=== PATIENT | female | born 1930 | race Caucasian/White ===

== ENCOUNTER 2018-06-10 10:02 | Observation (INO) ==
[2018-06-10] MEDS ORDERED: Aspirin 81 MG TAB.CHEW PO ONE (10:19)
[2018-06-10] MEDS ORDERED: Bumetanide 1 MG/4 ML VIAL IVP ONE (10:19)
--- NOTE | 2018-06-10 10:21 | Emergency Department Note ---
Disposition Clinical Impression: Congestive heart failure Disposition: Admitted As Inpatient Condition: Good Referrals: NONE,PCP [Primary Care Provider] - Time of Disposition: 11:47 SOB HPI - General Chief Complaint: ED Shortness of Breath/Dyspnea Stated Complaint: sob Time Seen by Provider: 06/10/18 10:06 Source: patient Mode of arrival: ambulatory Limitations: no limitations Nursing Notes Reviewed: Yes Vital Signs Reviewed: Yes - History of Present Illness Pt Subjective Complaint: shortness of breath, chest pain (No pain pressure) Onset (ago): day(s) Severity: mild Consistency/Duration: intermittent, gradually worsening Improves with: nothing Worsens with: exertion, movement Associated symptoms: Reports: chest pain, orthopnea. Denies: pain with inspiration, fever, cough, wheezing (Pressure), sputum production, lower extremity pain, polyuria, polydipsia, parasthesias, palpitations, hemoptysis, diaphoresis, nausea/vomiting, syncope, abdominal pain, rash, sense of impending doom Treatment prior to arrival: none, other ([place] family physician on Monday they didn't no medication changes at that time) Cough present: No Sputum production: No - Related Data Home Medications Medication Instructions Recorded Confirmed Metoprolol [Lopressor] 25 mg PO BID 06/10/18 06/10/18 Nitrofurantoin (BID) [Macrobid] 100 mg PO BID 06/10/18 06/10/18 Allergies Allergy/AdvReac Type Severity Reaction Status Date / Time No Known Allergies Allergy Verified 09/05/15 08:40 All systems ED: reviewed and negative except as stated. Limitations: ROS unobtainable due to patients medical condition Constitutional: Denies: fever, chills, weakness Eyes: Denies: eye pain, eye discharge ENT ED: Denies: throat pain, congestion Cardiovascular: Reports: chest pain (Pressure not pain), orthopnea, edema. Denies: palpitations, dyspnea on exertion, paroxysmal nocturnal dyspnea Respiratory: Reports: cough. Denies: dyspnea, wheezes, hemoptysis Gastrointestinal: Denies: abdominal pain, nausea, vomiting Genitourinary: Denies: urgency, dysuria, frequency Musculoskeletal: Denies: back pain, neck pain Integumentary: Denies: rash, abrasion Neurological: Denies: headache, weakness Psychiatric: Denies: anxiety Endocrine: Denies: fatigue, heat or cold intolerance Hematological/Lymphatic: Denies: easy bleeding, easy bruising Allergic/Immunologic: Denies: facial swelling, urticaria Past Medical History - Past Medical History Attestation: Yes The following information was validated with the patient. Source: patient, old records reviewed, nursing notes reviewed Medical history: Reports: hyperlipidemia, hypertension, other Psychiatric history: Reports: no psych history - Social History Smoking Status: Former smoker Smokeless Tobacco Status: No Alcohol use: Reports: none Drug use: Reports: none Physical Exam - General Limitations: no limitations General appearance: alert, in no apparent distress, other (Pleasant younger than stated age) - Head Head exam: atraumatic, normocephalic, normal inspection - Eye Eye exam: Present: normal appearance, PERRL, EOMI - ENT ENT exam: normal exam, normal oropharynx - Neck Neck exam: Present: normal inspection, full ROM, trachea midline - Chest Chest inspection: Present: normal inspection, symmetric chest wall rise - Respiratory Respiratory exam: Present: other (Crackles in the bases) - Cardiovascular Cardiovascular exam: Present: regular rate, normal rhythm, normal heart sounds - Abdominal Exam Abdominal exam: Present: soft, Non-Tender, normal bowel sounds. Absent: mass, pulsatile mass - Expanded Upper Extremity Exam Shoulder exam: Present: normal inspection, full ROM Arm exam: Present: normal inspection, full ROM Elbow exam: Present: normal inspection, full ROM Forearm/Wrist exam: Present: normal inspection, full ROM Hand exam: Present: normal inspection, full ROM Vascular exam: Normal: capillary refill, radial pulse - Expanded Lower Extremity Exam Hip/Pelvis exam: Present: normal inspection, full ROM Upper leg exam: Present: normal inspection, full ROM Knee exam: Present: normal inspection, full ROM Lower leg exam: Present: normal inspection, full ROM, swelling Ankle exam: Present: normal inspection, full ROM, swelling Foot/toe exam: Present: normal inspection, full ROM, swelling Neurovascular/Tendon exam: Present: normal capillary refill, normal fine/light touch. Absent: motor deficit, sensory deficit, tendon deficit Gait: observed and normal - Back Exam Back exam: Present: normal inspection, full ROM. Absent: muscle spasm - Neurological Exam Neurological exam: Present: alert, oriented X3, CN II-XII intact, normal gait - Psychiatric Psychiatric exam: Present: normal affect, normal mood - Skin Skin exam: Present: warm, dry, intact, normal color Course Course Narrative: Patient was immediately seen and evaluated patient's noted to have some edema lower extremities as result the patient given 1 mg of Bumex and patient's R he started diuresing well here patient's that she starting to feel markedly improved patient will be transferred to [facility] patient improved feeling better blood pressures Vital Signs Temperature 97.5 F L 06/10/18 10:06 Pulse Rate 98 06/10/18 10:06 Respiratory Rate 18 06/10/18 10:06 Blood Pressure 182/94 06/10/18 10:06 O2 Sat by Pulse Oximetry 97 06/10/18 10:06 Temperature 97.5 F L 06/10/18 10:06 Pulse Rate 98 06/10/18 10:06 Respiratory Rate 18 06/10/18 10:06 Blood Pressure 182/94 06/10/18 10:06 O2 Sat by Pulse Oximetry 97 06/10/18 10:06 Oxygen Delivery Oxygen Delivery Room Air Shortness of Breath/Dyspnea - Differential Diagnosis Likely: congestive heart failure - Medical Records Medical records reviewed: Yes I reviewed the patient's medical records. - Lab Data Lab results reviewed: Yes I reviewed the patient's lab results. - Radiology Data Radiology results reviewed: Yes I reviewed the patient's radiology results. ITS Impressions Chest X-Ray 06/10/18 10:19 IMPRESSION: 1. Mild pulmonary edema with bibasilar atelectasis and small effusions. D/ / 06/10/2018 10:44:25 Kyara Boss MD / alana Interpreting Provider: Kyara Boss MD - EKG Data EKG attestation: Yes I reviewed and interpreted this EKG. EKG results narrative: Sinus rhythm ABC unifocal lateral T-wave depression noted in V5 and V6 no ST segment elevation Critical Care Time Critical Care Time: No
[2018-06-10 10:46] LABS: Basophils # 0.1 K/mcL (0.0-0.2); Basophils % 0.5 %; Eosinophils % 0.3 %; Hematocrit 33.8 % (35.3-44.9); Hemoglobin 10.6 g/dL (11.5-15.4); Immature Granulocytes % 0.5 % (0-4); Lymphocytes % 20.7 %; Mean Corpuscular HGB Conc 31.4 g/dL (31.6-35.5); Mean Corpuscular Hemoglobin 28.1 pg (28.0-33.3); Mean Corpuscular Volume 89.7 fL (83.0-100.0); Mean Platelet Volume 10.3 fL (9.4-12.4); Monocytes # 0.9 K/mcL (0.0-1.3); Monocytes % 9.7 %; Neutrophils # 6.5 K/mcL (1.6-8.9); Platelet Count 271 K/mcL (140-400); Red Blood Count 3.77 M/mcL (3.82-4.97); Red Cell Distribution Width 13.2 % (11.5-14.5); Segmented Neutrophils % 68.3 %
[2018-06-10 10:54] LABS: INR 1.1; Prothrombin Time 12.7 Seconds (9.4-12.1)
[2018-06-10 10:56] LABS: Activated Partial Thrombo Time 29.5 Seconds (26.0-36.0)
[2018-06-10 11:01] LABS: Albumin/Globulin Ratio 1.2 (1.1-2.2); Bilirubin,Total 0.7 mg/dL (0.3-1.0); Calcium 9.1 mg/dL (8.6-10.3); Globulin 3.4 g/dL (2.4-3.5); Potassium 3.6 mEq/L (3.5-5.1); Total Protein 7.4 g/dL (6.4-8.9)
[2018-06-10 11:16] LABS: Troponin I 0.05 ng/mL (< 0.04)
[2018-06-10 11:20] LABS: Bilirubin,Urine Negative (Negative); Blood,Urine Moderate (Negative); Clarity,Urine Slightly Cloudy (Clear); Color,Urine Orange (Yellow); Glucose,Urine (UA) Normal (Normal); Ketones,Urine Negative (Negative); Leukocyte Esterase,Urine Small (Negative); Nitrite,Urine Positive (Negative); PH,Urine 5.5 pH Units (5.0-8.0); Protein,Urine 100 mg/dL (Neg-Trace); Urobilinogen,Urine Normal (Normal)
[2018-06-10 11:28] LABS: Bacteria,Urine Moderate per hpf (None-Few); Granular Casts,Urine Few per lpf (None Seen); Hyaline Casts,Urine Few per lpf (None-Few); Mucus,Urine Few (Few); Squamous Epithelial Cell,Urine Moderate per lpf (None-Few); WBC,Urine TNTC per hpf (0-3)
[2018-06-10] MEDS ORDERED: Naloxone 0.4 MG/ML INJ IVP PRN (12:08)
[2018-06-10] MEDS ORDERED: cefTRIAXone 1,000 MG in Water for inj. (sterile) 20 ML 10 ML IVP ONE ×2 (12:40→13:00)
[2018-06-10] MEDS: Bumetanide 1 MG/4 ML VIAL IVP SCH (16:16)
--- NOTE | 2018-06-10 17:50 | Internal Med History&Physical ---
Date of Encounter: 06/10/18 Time of Encounter: 17:15 Assessment and Plan (1) Congestive heart failure Current visit: Yes Status: Acute She was given IV Bumex in emergency room. Symptoms have lessened. Continue IV diuretics and Lopressor. Echocardiogram will be done and further workup as needed. Qualifiers: Heart failure type: unspecified Heart failure chronicity: unspecified Qu alified Code(s): I50.9 - Heart failure, unspecified (2) Anemia Current visit: Yes Status: Acute Anemia testing will be done in a.m. Qualifiers: Anemia type: unspecified type Qualified Code(s): D64.9 - Anemia, unspecified (3) Hypertension Current visit: Yes Status: Chronic Continue metoprolol and IV diuretics. Blood pressure will be monitored. Qualifiers: Hypertension type: essential hypertension Qualified Code(s): I10 - Essenti al (primary) hypertension (4) CKD (chronic kidney disease) stage 3, GFR 30-59 ml/min Current visit: Yes Status: Chronic Creatinine has increased from 1.02 on 08/12/2016 to 1.27 today. IV fluids will be given and renal indices will be monitored. (5) Elevated troponin Current visit: Yes Status: Acute Suspect due to demand ischemia from heart failure. Continue to trend. (6) Low vitamin D level Current visit: Yes Status: Acute Vitamin D level was 23 on 08/12/2016. Recheck in a.m. (7) UTI (urinary tract infection) Current visit: Yes Status: Acute Escherichia coli was found on urine culture 05/25/2018. Rocephin was given in emergency room and will be continued with lactobacillus. Qualifiers: Urinary tract infection type: site unspecified Hematuria presence: with hematuria Qualified Code(s): N39.0 - Urinary tract infection, site not specified; R31.9 - Hematuria, unspecified Internal Medicine - H&P: HPI Chief complaint: Dyspnea, vomiting Admitted From: Emergency Dept Plans for Post Hospital Care: Home History of present illness: Ms. Cordero is a 87 year old female who came to emergency room stating she had worsening dyspnea over the previous 2 weeks. She was evaluated at her PCP office June 04 and was told she had asthma and UTI. She was started on Bactrim DS but was changed to nitrofurantoin the following day for unknown reason. PFTs were ordered to be done June 12. She did not feel improved with the treatment so came to emergency room today. Workup showed significantly elevated BN peptide, azotemia, anemia and evidence of UTI. She was [facility] to [facility] floor for ongoing care needs. Her cardiovascular history is significant for hypertension. She denies diagnosis of [place] heart failure angina DVT or pulmonary embolus. She admits she has had some dyspnea on exertion for approximately 6 months. Respiratory history is significant for having smoked from approximately age 23- 53 never up to one pack per day. She denies chronic lung disease and does not use home oxygen. She has not had PFTs previously. Past Med Surg Social Fam HX - Past Medical History Medical history: hyperlipidemia, hypertension, other Additional medical history: Macular degeneration Psychiatric history: no psych history - Past Surgical History Surgical History: no surgical history - Social History Smoking Status: Former smoker Smokeless Tobacco Status: No Alcohol use: none Drug use: none Internal Medicine - H&P: Meds Metoprolol [Lopressor] 25 mg PO BID 06/10/18 [History] Nitrofurantoin (BID) [Macrobid] 100 mg PO BID 06/10/18 [History] Allergy/AdvReac Type Severity Reaction Status Date / Time No Known Allergies Allergy Verified 09/05/15 08:40 All Systems PM: A 10-system review of systems was performed and is negative for pertinent findings except as documented above in the HPI. Review of systems: Gen.: She states she has lost approximately 10 pounds in the past 2 years Cardiovascular: As per history of present illness Respiratory: As per history of present illness GI: She denies disorders of her liver gallbladder or exocrine pancreas : She was told she had decreased GFR August 2016. 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 She denies known kidney or bladder disorders otherwise. Neurologic: She denies large distribution strokes or seizures. Endocrine: She has history of hyperlipidemia but no longer takes medication. She denies diabetes or thyroid disease. Hematology/oncology: She has been diagnosed with anemia in the past and was instructed to take OTC iron pills. She denies internal malignancies or other bl ood disorders. Psychiatric: She denies anxiety depression or other mental health issues. [place] skeletal: She has DJD but denies gout or other bone joint or muscle disorders. - Constitutional Vitals: Temp Pulse Resp BP Pulse Ox 98.1 F 88 16 161/87 98 06/10/18 16:37 06/10/18 16:37 06/10/18 16:37 06/10/18 16:37 06/10/18 16:37 Exam: Gen.: She is a well developed well-nourished female resting comfortably in bed who appears in no acute distress HEENT: Head is atraumatic and normocephalic. Eyes: EOMI. There is no scleral icterus. Mouth: Mucosa is moist. Neck: Supple and nontender. There is no thyromegaly or adenopathy noted. Heart: Regular without murmurs or gallops. She has frequent ectopic beats. Lungs: No wheezes or crackles are heard. Abdomen: Soft and nontender. No masses or guarding are noted. Extremities: There is no cyanosis or clubbing noted. She has 1+ edema of the dorsum of the feet bilaterally. Dorsalis pedis and posterior tibial pulses are trace palpable. Neurologic: Mental status: She is talkative and a good historian. Cranial nerves: Smile is symmetric. Forehead wrinkles bilaterally. Tongue protrudes midline. EOMI. Motor: There is no pronator drift. Cerebellar: Finger to nose is intact bilaterally. Skin: Warm and dry Internal Med - H&P Results - Labs CBC & Chem 7: 06/10/18 10:38 06/10/18 10:38 Labs: Short CBC 06/10/18 Range/Units 10:38 WBC 9.6 (4.3-11.1) K/mcL Hgb 10.6 L (11.5-15.4) g/dL Hct 33.8 L (35.3-44.9) % Plt Count 271 (140-400) K/mcL Neutrophils # 6.5 (1.6-8.9) K/mcL BMP 06/10/18 10:38 Sodium 138 Potassium 3.6 Chloride 103 Carbon Dioxide 23 BUN 29 H Creatinine 1.27 H Glucose 131 H Calcium 9.1 Cardiac Enzymes 06/10/18 06/10/18 Range/Units 10:38 16:12 Troponin I 0.05 H* 0.06 H* (< 0.04) ng/mL Liver Function 06/10/18 Range/Units 10:38 Total Bilirubin 0.7 (0.3-1.0) mg/dL AST 12 L (13-39) Units/L ALT 13 (7-52) Units/L Alkaline Phosphatase 62 (34-104) Units/L Albumin 4.0 (3.5-5.7) g/dL Urine 06/10/18 Range/Units 11:10 Urine Color Izard A (Yellow) Urine Clarity Slightly Cloudy A (Clear) Urine pH 5.5 (5.0-8.0) pH Units Ur Specific Hawley 1.020 (1.010-1.025) Urine Protein 100 H (Neg-Trace) mg/dL Urine Glucose (UA) Normal (Normal) mg/dL - Impressions ITS Impressions Chest X-Ray 06/10/18 10:19 IMPRESSION: 1. Mild pulmonary edema with bibasilar atelectasis and small effusions. D/ / 06/10/2018 10:44:25 Kyara Boss MD / alana Interpreting Provider: Kyara Boss MD
[2018-06-10] MEDS: Isosorbide MONOnitrate (24 HR) 30 MG TAB.ER.24H PO SCH (18:17)
[2018-06-10] MEDS ORDERED: 0.45 % Sodium Chloride w/KCl 20 MEQ/1,000 ML MLS IVC SCH (18:45)
[2018-06-10] MEDS: Lactobacillus 1 EACH CAP.SPRINK PO SCH (21:00)
[2018-06-11 06:19] LABS: Basophils % 0.4 %; Eosinophils # 0.1 K/mcL (0.0-0.6); Eosinophils % 1.3 %; Hematocrit 29.4 % (35.3-44.9); Hemoglobin 9.3 g/dL (11.5-15.4); Immature Granulocytes % 0.2 % (0-4); Lymphocytes # 2.6 K/mcL (0.6-4.6); Lymphocytes % 27.8 %; Mean Corpuscular HGB Conc 31.6 g/dL (31.6-35.5); Mean Corpuscular Hemoglobin 28.4 pg (28.0-33.3); Mean Corpuscular Volume 89.6 fL (83.0-100.0); Mean Platelet Volume 10.9 fL (9.4-12.4); Monocytes # 1.1 K/mcL (0.0-1.3); Monocytes % 12.3 %; Neutrophils # 5.3 K/mcL (1.6-8.9); Platelet Count 229 K/mcL (140-400); Red Blood Count 3.28 M/mcL (3.82-4.97)
[2018-06-11 06:37] LABS: Calcium 8.5 mg/dL (8.6-10.3); Magnesium 1.9 mg/dL (1.6-2.6); Potassium 3.8 mEq/L (3.5-5.1)
[2018-06-11] MEDS: Bumetanide 1 MG/4 ML VIAL IVP SCH ×2 (09:01→17:49)
[2018-06-11] MEDS: Lactobacillus 1 EACH CAP.SPRINK PO SCH ×2 (09:01→21:14)
[2018-06-11] MEDS: cefTRIAXone 1,000 MG in Water for inj. (sterile) 20 ML 10 ML IVP SCH (09:09)
[2018-06-11 10:43] LABS: Folate 21.1 ng/mL (3.0-16.0)
--- NOTE | 2018-06-11 11:50 | Internal Med Progress Note ---
Date of Encounter: 06/11/18 Time of Encounter: 11:25 - Assessment and plan (1) Congestive heart failure Current Visit: Yes Status: Acute Assessment and plan: June 11. LVEF was 30-35%. Metoprolol dose will be increased. Lisinopril will be started. Imdur will be continued with IV Bumex. Follow-up labs will be done in a.m. Qualifiers: Heart failure type: unspecified Heart failure chronicity: unspecified Qualified Code(s): I50.9 - Heart failure, unspecified (2) Anemia Current Visit: Yes Status: Acute Assessment and plan: Anemia testing showed iron 24, transferrin saturation 5%, transferrin 323, ferritin 18, B12 258, and folate 21.1. She will be given ferrous sulfate with ascorbic acid. Qualifiers: Anemia type: unspecified type Qualified Code(s): D64.9 - Anemia, unspecified (3) Hypertension Current Visit: Yes Status: Chronic Assessment and plan: June 11. Increase metoprolol and add lisinopril. Qualifiers: Hypertension type: essential hypertension Qualified Code(s): I10 - Essential (primary) hypertension (4) CKD (chronic kidney disease) stage 3, GFR 30-59 ml/min Current Visit: Yes Status: Chronic Assessment and plan: June 11. Creatinine minimally changed at 1.21. Discontinue IV fluids and monitor renal indices. (5) Elevated troponin Current Visit: Yes Status: Acute Assessment and plan: June 11. Likely due to heart failure with demand ischemia. (6) Low vitamin D level Current Visit: Yes Status: Acute Assessment and plan: June 11. Vitamin D level returned low at 17. Start vitamin D 2000 international units daily. (7) UTI (urinary tract infection) Current Visit: Yes Status: Acute Assessment and plan: June 11. Urine culture pending. Continue empiric Rocephin with lactobacillus. Qualifiers: Urinary tract infection type: site unspecified Hematuria presence: with hematuria Qualified Code(s): N39.0 - Urinary tract infection, site not specified; R31.9 - Hematuria, unspecified - Subjective Interval history: June 11. She has no new complaints. - Constitutional Vitals: Temp Pulse Resp BP Pulse Ox 98.3 F 72 16 148/78 96 06/11/18 11:25 06/11/18 11:25 06/11/18 11:25 06/11/18 11:25 06/11/18 11:25 Exam: She is resting comfortably in bed and appears in no acute distress. Her affect is overall cheerful. I reviewed her medications and lab results. I discussed in detail the report of her echocardiogram. Internal Medicine: Result - Labs CBC & Chem 7: 06/11/18 05:33 06/11/18 05:33 Labs: Short CBC 06/11/18 Range/Units 05:33 WBC 9.2 (4.3-11.1) K/mcL Hgb 9.3 L (11.5-15.4) g/dL Hct 29.4 L (35.3-44.9) % Plt Count 229 (140-400) K/mcL Neutrophils # 5.3 (1.6-8.9) K/mcL BMP 06/11/18 05:33 Sodium 139 Potassium 3.8 Chloride 105 Carbon Dioxide 24 BUN 30 H Creatinine 1.21 H Glucose 99 Calcium 8.5 L Cardiac Enzymes 06/10/18 06/10/18 Range/Units 16:12 22:52 Troponin I 0.06 H* 0.06 H* (< 0.04) ng/mL - ABG Interpretation ABG results: PT/INR, D-dimer PT 12.7 Seconds (9.4-12.1) H 06/10/18 10:38 - Impressions Impressions Echocardiogram 06/10/18 18:02 Impressions: LVEF 30-35%. Severe global left ventricular systolic dysfunction. Moderate left ventricular diastolic dysfunction. Moderately dilated left atrium. Normal right ventricular size and mild hypkokinesis. Mildly dilated right atrium. Moderate aortic regurgitation. Moderate mitral regurgitation. Mild-moderate tricuspid regurgitation. Mild pulmonic regurgitation. Moderate pulmonary hypertension. Large pleural effusion. Ordering physician notified via [facility]. Left Ventricular Wall Motion: Rest Echo Findings All wall segments showed normal motion. Findings: Study Quality * Technically adequate exam. ECG Findings * Sinus rhythm with PVCs. Left Ventricle * LVEF 30-35%. * Normal LV chamber size and wall thickness. * Severe global left ventricular systolic dysfunction. * Moderate left ventricular diastolic dysfunction. * Definity echo contrast was not used. Right Ventricle * Normal right ventricular structure and mild hypkokinesis. Left Atrium * Moderately dilated left atrium. Right Atrium * Mildly dilated right atrium. Interatrial Septum * Interatrial septum not well evaluated. Aortic Valve * Trileaflet aortic valve. * No aortic stenosis. * Moderate aortic regurgitation. Mitral Valve * Normal mitral valve structure. * No mitral stenosis. * Moderate mitral regurgitation. Tricuspid Valve * Normal tricuspid valve structure. * No tricuspid stenosis. * Mild-moderate tricuspid regurgitation. * Estimated RVSP is 56 mmHg. * Estimated RA pressure is 15 mmHg. * Moderate pulmonary hypertension. Pulmonic Valve * Pulmonic valve is not well visualized. * No pulmonic stenosis. * Mild pulmonic regurgitation. Aorta * Normally sized aortic root. Pericardium * There is no pericardial effusion present. IVC * The IVC is dilated. * < 50% respiratory change. Pleural Effusion * Large pleural effusion. Consult Discharge Plan - Plan Referrals: NONE,PCP [Primary Care Provider] - 1 week
[2018-06-11] MEDS: Cholecalciferol (D-3) 1,000 UNIT TABLET PO SCH (13:48)
[2018-06-11] MEDS: Isosorbide MONOnitrate (24 HR) 30 MG TAB.ER.24H PO SCH (17:48)
[2018-06-12] MEDS: Ascorbic Acid 500 MG TABLET PO SCH (06:29)
[2018-06-12 06:52] LABS: Basophils # 0.1 K/mcL (0.0-0.2); Basophils % 0.6 %; Eosinophils # 0.1 K/mcL (0.0-0.6); Eosinophils % 1.4 %; Hematocrit 29.2 % (35.3-44.9); Hemoglobin 9.1 g/dL (11.5-15.4); Immature Granulocytes % 0.3 % (0-4); Lymphocytes # 2.8 K/mcL (0.6-4.6); Lymphocytes % 27.3 %; Mean Corpuscular HGB Conc 31.2 g/dL (31.6-35.5); Mean Corpuscular Hemoglobin 27.7 pg (28.0-33.3); Mean Platelet Volume 10.2 fL (9.4-12.4); Monocytes # 1.4 K/mcL (0.0-1.3); Monocytes % 13.4 %; Neutrophils # 5.8 K/mcL (1.6-8.9); Platelet Count 225 K/mcL (140-400); Red Blood Count 3.28 M/mcL (3.82-4.97); Red Cell Distribution Width 13.2 % (11.5-14.5)
[2018-06-12 07:11] LABS: Calcium 8.5 mg/dL (8.6-10.3); Magnesium 1.9 mg/dL (1.6-2.6); Potassium 3.5 mEq/L (3.5-5.1)
[2018-06-12] MEDS: cefTRIAXone 1,000 MG in Water for inj. (sterile) 20 ML 10 ML IVP SCH (09:36)
[2018-06-12] MEDS: Bumetanide 1 MG/4 ML VIAL IVP SCH ×2 (09:38→17:16)
[2018-06-12] MEDS: Cholecalciferol (D-3) 1,000 UNIT TABLET PO SCH (09:39)
[2018-06-12] MEDS: Lactobacillus 1 EACH CAP.SPRINK PO SCH (09:39)
--- NOTE | 2018-06-12 10:58 | Internal Med Progress Note ---
Date of Encounter: 06/12/18 Time of Encounter: 10:20 - Assessment and plan (1) Congestive heart failure Current Visit: Yes Status: Acute Assessment and plan: June 11. LVEF was 30-35%. Metoprolol dose will be increased. Lisinopril will be started. Imdur will be continued with IV Bumex. Follow-up labs will be done in a.m. June 12. BN peptide improved to 1766. Increase lisinopril and Imdur. Continue metoprolol and Bumex. Anticipate discharge home tomorrow if stable. Qualifiers: Heart failure type: unspecified Heart failure chronicity: unspecified Qualified Code(s): I50.9 - Heart failure, unspecified (2) Anemia Current Visit: Yes Status: Acute Assessment and plan: June 11. Anemia testing showed iron 24, transferrin saturation 5%, transferrin 323, ferritin 18, B12 258, and folate 21.1. She will be given ferrous sulfate with ascorbic acid. Qualifiers: Anemia type: unspecified type Qualified Code(s): D64.9 - Anemia, unspecified (3) Hypertension Current Visit: Yes Status: Chronic Assessment and plan: June 11. Increase metoprolol and add lisinopril. June 12. Increase lisinopril. Continue metoprolol and Imdur Qualifiers: Hypertension type: essential hypertension Qualified Code(s): I10 - Essential (primary) hypertension (4) CKD (chronic kidney disease) stage 3, GFR 30-59 ml/min Current Visit: Yes Status: Chronic Assessment and plan: June 11. Creatinine minimally changed at 1.21. Discontinue IV fluids and monitor renal indices. (5) Elevated troponin Current Visit: Yes Status: Acute Assessment and plan: June 11. Likely due to heart failure with demand ischemia. (6) Low vitamin D level Current Visit: Yes Status: Acute Assessment and plan: June 11. Vitamin D level returned low at 17. Start vitamin D 2000 international units daily. (7) UTI (urinary tract infection) Current Visit: Yes Status: Acute Assessment and plan: June 11. Urine culture pending. Continue empiric Rocephin with lacto bacillus. June 12. Urine culture showed no growth. Discontinue Rocephin and lactobacillus. Qualifiers: Urinary tract infection type: site unspecified Hematuria presence: with hematuria Qualified Code(s): N39.0 - Urinary tract infection, site not specified; R31.9 - Hematuria, unspecified - Subjective Interval history: June 11. She has no new complaints. June 12. She has no new complaints and feels better. - Constitutional Vitals: Temp Pulse Resp BP Pulse Ox 98.2 F 68 16 135/68 93 06/12/18 10:54 06/12/18 10:54 06/12/18 10:54 06/12/18 10:54 06/12/18 10:54 Exam: She is ambulating in the room and appears in no significant dyspnea. Her affect is bright and cheerful. I reviewed her medications and lab results. Internal Medicine: Result - Labs CBC & Chem 7: 06/12/18 06:38 06/12/18 06:38 Labs: Short CBC 06/12/18 Range/Units 06:38 WBC 10.1 (4.3-11.1) K/mcL Hgb 9.1 L (11.5-15.4) g/dL Hct 29.2 L (35.3-44.9) % Plt Count 225 (140-400) K/mcL Neutrophils # 5.8 (1.6-8.9) K/mcL BMP 06/12/18 06:38 Sodium 141 Potassium 3.5 Chloride 108 H Carbon Dioxide 25 BUN 29 H Creatinine 1.22 H Glucose 102 Calcium 8.5 L - ABG Interpretation ABG results: PT/INR, D-dimer PT 12.7 Seconds (9.4-12.1) H 06/10/18 10:38 Consult Discharge Plan - Plan Referrals: NONE,PCP [Primary Care Provider] - 1 week
[2018-06-12] MEDS ORDERED: *HR* Digoxin 0.25 MG TABLET PO ONE (11:15)
[2018-06-12] MEDS ORDERED: Isosorbide MONOnitrate (24 HR) 30 MG TAB.ER.24H PO SCH (18:00)
[2018-06-13] MEDS: Ascorbic Acid 500 MG TABLET PO SCH (05:36)
[2018-06-13 05:50] LABS: Basophils % 0.4 %; Eosinophils # 0.2 K/mcL (0.0-0.6); Eosinophils % 1.5 %; Hemoglobin 8.9 g/dL (11.5-15.4); Immature Granulocytes % 0.4 % (0-4); Lymphocytes # 1.9 K/mcL (0.6-4.6); Lymphocytes % 18.8 %; Mean Corpuscular HGB Conc 30.7 g/dL (31.6-35.5); Mean Corpuscular Hemoglobin 27.6 pg (28.0-33.3); Mean Corpuscular Volume 89.8 fL (83.0-100.0); Mean Platelet Volume 10.7 fL (9.4-12.4); Monocytes # 1.2 K/mcL (0.0-1.3); Monocytes % 12.1 %; Neutrophils # 6.7 K/mcL (1.6-8.9); Platelet Count 228 K/mcL (140-400); Red Blood Count 3.23 M/mcL (3.82-4.97); Red Cell Distribution Width 13.2 % (11.5-14.5); Segmented Neutrophils % 66.8 %
[2018-06-13 06:13] LABS: Calcium 8.6 mg/dL (8.6-10.3); Potassium 3.3 mEq/L (3.5-5.1)
[2018-06-13] MEDS: Bumetanide 1 MG/4 ML VIAL IVP SCH (08:08)
[2018-06-13] MEDS: Cholecalciferol (D-3) 1,000 UNIT TABLET PO SCH (08:09)
--- NOTE | 2018-06-13 10:18 | Discharge Summary ---
Orders not resulted at time of discharge: Pending orders 06/10/18 10:40 Culture,Blood [] Stat Date of Encounter: 06/13/18 Time of Encounter: 10:05 - Discharge Diagnosis (1) Congestive heart failure Priority: Primary Status: Acute Qualifiers: Heart failure type: unspecified Heart failure chronicity: unspecified Qualified Code(s): I50.9 - Heart failure, unspecified (2) Anemia Priority: Secondary Status: Acute Qualifiers: Anemia type: unspecified type Qualified Code(s): D64.9 - Anemia, unspecified (3) Hypertension Priority: Secondary Status: Chronic Qualifiers: Hypertension type: essential hypertension Qualified Code(s): I10 - Essential (primary) hypertension (4) CKD (chronic kidney disease) stage 3, GFR 30-59 ml/min Priority: Secondary Status: Chronic (5) Elevated troponin Priority: Secondary Status: Acute (6) Low vitamin D level Priority: Secondary Status: Chronic (7) UTI (urinary tract infection) Priority: Secondary Status: Resolved Qualifiers: Urinary tract infection type: site unspecified Hematuria presence: with hematuria Qualified Code(s): N39.0 - Urinary tract infection, site not specified; R31.9 - Hematuria, unspecified Hospital course: Ms. Cordero is a 87 year old female who came to emergency room stating she had worsening dyspnea over the previous 2 weeks. She was evaluated at her PCP office June 04 and was told she had asthma and UTI. She was started on Bactrim DS but was changed to nitrofurantoin the following day for unknown reason. PFTs were ordered to be done June 12. She did not feel improved with the treatment so came to emergency room today. Workup showed significantly elevated BN peptide, azotemia, anemia and evidence of UTI. She was admitted to [facility] floor for ongoing care needs. Initial orders were written by the emergency room physician. I saw her on June 10 and performed a history and physical. She was given IV Bumex in emergency room. This was continued throughout her hospitalization. An echocardiogram was done to further evaluate cardiac status. The echo showed LVEF of 30-35% with systolic and diastolic dysfunction seen. There was regurgitation of varying severity across all valves. She was started on lisinopril, Imdur, diuretics, and higher dose metoprolol. She had clinical improvement with BN peptide decreasing from 3144 on admission to 1956 by day of discharge. She was able to ambulate in the room without significant dyspnea. She will follow with her PCP who can monitor cardiac status and/or refer her to production analyst as needed. Anemia testing showed iron 24, transferrin saturation 5%, transferrin 2023, ferritin 18, B12 258, and folate 21.1. She was started on ferrous sulfate with ascorbic acid. Her PCP can do further workup such as EGD/colonoscopy etc. as indicated to identify the cause of the anemia. Azotemia improved slightly during hospitalization with creatinine decreasing from 1.27 on admission of 1.16 on day of discharge. Her PCP can monitor and refer her to nephrology as needed. Vitamin D level returned low at 17. She was started on vitamin D 2000 international units daily. U/A on admission showed TNTC WBC. She was started on Rocephin empirically. Urine culture returned showing no growth so antibiotics will not be continued at discharge. On June 13 she was stable for discharge home. She will follow with her PCP Dr. Chandler within 1 week. - Time Spent with Patient Total time spent providing and/or coordinating discharge services: - Discharge Medications Prescriptions: Ascorbic Acid [Vitamin C] 500 mg PO 0630 #30 tablet Bumetanide [Bumex] 1 mg PO DAILY #30 tablet Cholecalciferol (D-3) [Vitamin D] 2,000 unit PO DAILY #60 tablet Ferrous Sulfate 325 mg PO 0630 #30 tablet Isosorbide MONOnitrate (24 HR) [Imdur] 60 mg PO DAILY #30 tab.er.24h Lisinopril [Zestril] 20 mg PO DAILY #30 tablet Metoprolol Succinate 100 mg PO DAILY #30 tab.er.24h Potassium Chloride 10 meq PO BIDWM #60 tab.er.prt Home Medications: Ascorbic Acid [Vitamin C] 500 mg PO 0630 #30 tablet 06/13/18 [Rx] Bumetanide [Bumex] 1 mg PO DAILY #30 tablet 06/13/18 [Rx] Cholecalciferol (D-3) [Vitamin D] 2,000 unit PO DAILY #60 tablet 06/13/18 [Rx] Ferrous Sulfate 325 mg PO 0630 #30 tablet 06/13/18 [Rx] Isosorbide MONOnitrate (24 HR) [Imdur] 60 mg PO DAILY #30 tab.er.24h 06/13/18 [Rx] Lisinopril [Zestril] 20 mg PO DAILY #30 tablet 06/13/18 [Rx] Metoprolol Succinate 100 mg PO DAILY #30 tab.er.24h 06/13/18 [Rx] Potassium Chloride 10 meq PO BIDWM #60 tab.er.prt 06/13/18 [Rx] Allergies/Adverse Reactions: Allergy/AdvReac Type Severity Reaction Status Date / Time No Known Allergies Allergy Verified 09/05/15 08:40 Date of admission: 06/10/18 12:04 Primary care physician: Louie Chandler M.D. Consults: 06/10/18 12:08 Consult to Cardiac Rehabilitation-Phase1 [CONS] Routine Comment: Reason for Consult: heart failure Call Completed: Yes Consult to Nurse Navigator [CONS] Routine Comment: - Constitutional Vitals: Temp Pulse Resp BP Pulse Ox 98.3 F 93 14 173/83 97 06/13/18 07:46 06/13/18 07:46 06/13/18 07:46 06/13/18 07:46 06/13/18 07:46 - Patient Status Disposition: Home, Self-Care Condition: Good - Discharge Instructions Follow Up With: Louie Chandler MD [Partnered Physician] - 1 week - Diet and Activity Activity: resume usual activities as tolerated Diet: advance to your usual diet
[2018-06-13 10:35] VITALS: BP 142/72
--- NOTE | 2018-06-13 14:35 | Electrocardiograph Report ---
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
== END 2018-06-13 11:31 | disposition home or self-care (01) ==
LOC: EMEROOPIK 10:02 → INPPIK 10:02
PROVIDERS: ADMIT Internal Medicine; ATTEND Internal Medicine